=== PATIENT | male | born 1985 ===

== ENCOUNTER 2024-04-17 10:33 | Emergency (ER) | payer SELFPAY ==
[2024-04-17] MEDS: Lidocaine 1% 5 ML VIAL INJECT ONE (11:45)
[2024-04-17] MEDS: Diphtheria,Pertussis(Acell),Tetanus Vaccine 0.5 ML Syringe IM ONE (12:00)
[2024-04-17] MEDS: Bacitracin Oint 1 GM U/D Packet TOP ONE (12:00)
== END 2024-04-17 12:12 | disposition home or self-care (01) ==
LOC: DL.ED 10:33
DX: S61.211A Laceration without foreign body of left index finger without damage to nail, initial encounter (principal); S61.012A Laceration without foreign body of left thumb without damage to nail, initial encounter; Z23 Encounter for immunization; W26.8XXA Contact with other sharp object(s), not elsewhere classified, initial encounter; Y93.89 Activity, other specified
CPT/HCPCS: 12002; 90471; 90715; 99282; A9270; J3490